=== PATIENT | male | born 1950 | race Two or more races ===

== ENCOUNTER 2019-01-31 14:16 | Emergency (ER) | payer MEDICARE, BC ==
[~2019-01-31] VITALS: Ht 170.2 cm; Wt 81.6 kg
[2019-01-31 14:53] LABS: Basophils # (auto) 0 uL; Basophils % (auto) 0.6 % (0.0-2.0); Eosinophils # (auto) 0.1 uL; Eosinophils % (auto) 1.3 % (0.0-7.0); Hematocrit 44.5 % (41.0-53.0); Hemoglobin 14.9 g/dL (13.5-17.5); Lymphocytes # (auto) 1.9 uL; Lymphocytes % (auto) 22.7 % (10.0-50.0); Mean Corpuscular Hemoglobin 28.5 pg (28.0-32.0); Mean Corpuscular Hgb Conc. 33.4 g/dL (32.0-36.0); Mean Corpuscular Volume 85.3 fL (80.0-100.0); Monocytes # (auto) 0.6 uL; Monocytes % (auto) 7.2 % (0.0-12.0); Neutrophils # (auto) 5.9 uL; Neutrophils % (auto) 68.2 % (37.0-80.0); Nucleated Red Blood Cells % 0.1 %; Platelet Count (auto) 254 10^3/uL (140-450); Red Blood Cells 5.21 10^6/uL (4.5-5.90); Red Cell Distribution Width 13.9 % (11.8-14.3); White Blood Cell 8.6 10^3/uL (4.4-10.8)
[2019-01-31 15:04] LABS: Albumin 3.1 g/dL (3.4-5.0); Anion Gap 5 (5-15); Blood Urea Nitrogen 9 mg/dL (7-18); Calcium 8.3 mg/dL (8.5-10.1); Carbon Dioxide 28 mmol/L (21-32); Chloride 105 mmol/L (98-107); Glucose 159 mg/dL (74-106); Potassium 3.6 mmol/L (3.5-5.1); Sodium 138 mmol/L (136-145)
[2019-01-31 15:05] LABS: Alanine Aminotransferase 33 U/L (16-61); Aspartate Aminotransferase 21 U/L (15-37); BUN/Creatinine Ratio 13.2; GFR African American 149 mL/min; GFR Non-African American 123 mL/min
[2019-01-31 15:10] LABS: Alkaline Phosphatase 89 U/L (45-117); Bilirubin, Total 0.3 mg/dL (0.2-1.0); Total Protein 6.9 g/dL (6.4-8.2)
[2019-01-31 16:05] LABS: Urine Bacteria NONE SEEN /hpf (None Seen); Urine Blood Negative /uL (Negative); Urine Specific Gravity 1.005 (1.001-1.035); Urine WBC 1 /hpf (0 - 3)
[2019-01-31 17:20] VITALS: BP 112/68
== END 2019-01-31 17:51 | disposition home or self-care (01) ==
LOC: EDBD 14:16 → ER 14:20
DX: N39.0 Urinary tract infection, site not specified (principal); M19.90 Unspecified osteoarthritis, unspecified site; E78.5 Hyperlipidemia, unspecified; I10 Essential (primary) hypertension
CPT/HCPCS: 36415; 70450; 80053; 81001; 84484; 85025; 93005

== ENCOUNTER 2019-11-29 14:06 | Inpatient (IN) | payer BC, MEDICARE, OTHER ==
[~2019-11-29] VITALS: Ht 165.1 cm; Wt 77.1 kg
[2019-11-29] MEDS ORDERED: SODIUM CHLORIDE 0.9% 1,000 ML IV ONE (14:27)
[2019-11-29] MEDS ORDERED: HEPARIN DRIP/D5W 100UNITS/ML 250 ML IV SCH (14:27)
[2019-11-29] MEDS ORDERED: ASPirin 81 mg TAB PO ONE (14:30)
[2019-11-29] MEDS ORDERED: HEPARIN SODIUM (PORCINE) 5000 UNITS/ML 1ML VIAL IV ONE ×2 (14:30→15:00)
[2019-11-29] MEDS ORDERED: HEPARIN SODIUM (PORCINE) 5000 UNITS/ML 1ML VIAL ONE (14:37)
[2019-11-29] MEDS ORDERED: DOPamine 1600MCG/ML D5W 250 ML IV ONE (15:00)
[2019-11-29 15:21] LABS: Chloride 107 mmol/L (98-107); Sodium 140 mmol/L (136-145)
[2019-11-29 15:24] LABS: Basophils # (auto) 0 10 ^3/uL (0-0.2); Basophils % (auto) 0.5 % (0.0-2.0); Eosinophils # (auto) 0.2 10 ^3/uL (0-0.8); Hemoglobin 13.2 g/dL (13.5-17.5); Lymphocytes # (auto) 2.7 10 ^3/uL (0.4-5.4); Lymphocytes % (auto) 32.9 % (10.0-50.0); Mean Corpuscular Hemoglobin 28.1 pg (28.0-32.0); Mean Corpuscular Hgb Conc. 32.2 g/dL (32.0-36.0); Mean Corpuscular Volume 87.3 fL (80.0-100.0); Monocytes # (auto) 0.6 10 ^3/uL (0-1.3); Monocytes % (auto) 7.6 % (0.0-12.0); Neutrophils # (auto) 4.7 10 ^3/uL (1.6-8.6); Nucleated Red Blood Cells % 0.1 %; Platelet Count (auto) 213 10^3/uL (140-450); Red Cell Distribution Width 14.1 % (11.8-14.3); White Blood Cell 8.2 10^3/uL (4.4-10.8)
[2019-11-29 15:29] LABS: INR 0.97 (0.9-1.15); Partial Thromboplastin Time 23.9 sec (23.0-31.2)
[2019-11-29 15:35] LABS: Alanine Aminotransferase 31 U/L (16-61); Albumin 2.9 g/dL (3.4-5.0); Alkaline Phosphatase 86 U/L (45-117); Anion Gap 7 (5-15); Aspartate Aminotransferase 20 U/L (15-37); BUN/Creatinine Ratio 24.2; Bilirubin, Total 0.2 mg/dL (0.2-1.0); Blood Urea Nitrogen 16 mg/dL (7-18); Calcium 8.3 mg/dL (8.5-10.1); Carbon Dioxide 26 mmol/L (21-32); Cholesterol 112 mg/dL (< 200); GFR African American 154 mL/min; GFR Non-African American 127 mL/min; Glucose 102 mg/dL (74-106); HDL Cholesterol 43 mg/dL (40-59); LDL Cholesterol 60 mg/dL (< 100); Magnesium 2.8 mg/dL (1.6-2.6); Total Protein 6.3 g/dL (6.4-8.2); Triglycerides 217 mg/dL (< 150)
[2019-11-29] MEDS ORDERED: LORazepam 0.5 MG TAB PO PRN (19:30)
[2019-11-29] MEDS ORDERED: MORPHINE SULF INJ 2 MG/ML SYRINGE 1ML IV PRN (19:30)
[2019-11-29] MEDS ORDERED: NITROGLYCERIN 0.4 MG SL TAB SL PRN (19:30)
[2019-11-29] MEDS ORDERED: D5W/SOD CHLO 0.9% 1,000 ML IV ONE (19:30)
[2019-11-29 19:45] VITALS: BP 99/46
[2019-11-29] MEDS ORDERED: SODIUM CHLOR 0.9% PF (SALINE LOCK) 10ML VIAL/SYR IV SCH (22:00)
[2019-11-30] MEDS ORDERED: PANTOPRAZOLE 40 MG TAB PO SCH (10:00)
[2019-11-30] MEDS ORDERED: DOCUSATE CALCIUM 240 MG CAP PO SCH (10:00)
[2019-12-01] MEDS ORDERED: CLOPIDOGREL BISULFATE 75 MG TAB PO SCH (10:00)
== END 2019-11-29 20:18 | disposition left against medical advice (07) | DRG 281 ==
LOC: ER 14:06 → EDBD 14:06 → TELE-WESTW 14:07
DX: I21.11 ST elevation (STEMI) myocardial infarction involving right coronary artery (principal); I69.354 Hemiplegia and hemiparesis following cerebral infarction affecting left non-dominant side; E66.3 Overweight; E78.5 Hyperlipidemia, unspecified; F17.210 Nicotine dependence, cigarettes, uncomplicated; I10 Essential (primary) hypertension; F41.9 Anxiety disorder, unspecified; K21.9 Gastro-esophageal reflux disease without esophagitis; M19.90 Unspecified osteoarthritis, unspecified site; I95.9 Hypotension, unspecified; R00.1 Bradycardia, unspecified; R55 Syncope and collapse; Z74.01 Bed confinement status
CPT/HCPCS: 36415; 71045; 80053; 80061; 83735; 83880; 84443; 84484; 85025; 85610; 85730; 93005; 99291; G0378

== ENCOUNTER → 2023-01-19 | Outpatient (CLI) | payer OTHER | END | disposition home or self-care (01) | LOC: Rad HDHVI 08:51 | PROVIDERS: ATTEND Internal Medicine Cardiovascular Disease | DX: I11.9 Hypertensive heart disease without heart failure (principal); I65.23 Occlusion and stenosis of bilateral carotid arteries | CPT/HCPCS: 93306; 93880 ==

== ENCOUNTER → 2023-03-07 | Outpatient (CLI) | payer OTHER ==
[~2023-03-07] VITALS: Ht 167.6 cm; Wt 78.0 kg
[~2023-03-07] MED LIST: ADENOSINE 66 MG in GIVE UN-DILUTED 0 ML IV ONE; ADENOSINE 90 MG/30 ML INJ IV ONE
== END | disposition home or self-care (01) ==
LOC: Rad HDHVI 13:57
PROVIDERS: ATTEND Internal Medicine Cardiovascular Disease
DX: I25.10 Atherosclerotic heart disease of native coronary artery without angina pectoris (principal); I10 Essential (primary) hypertension; I25.2 Old myocardial infarction; E11.9 Type 2 diabetes mellitus without complications; E78.00 Pure hypercholesterolemia, unspecified; Z82.49 Family history of ischemic heart disease and other diseases of the circulatory system
CPT/HCPCS: 78452; 93005; 96374; 96375; A9500; J0153